=== PATIENT | female | born 1955 | race Caucasian/White ===

== ENCOUNTER → 2018-11-09 | Outpatient (CLI) | payer OTHER ==
[~2018-11-09] MED LIST: ALEV220T22 PO; ASPI81TA85 PO; BUPR300T34 PO; EZET10TA21 PO; GABA-843 PO; LISI20TA PO; SIMV40TA2 PO; ZANA4CAP PO
--- NOTE | 2018-11-10 21:47 | ECGEPIP ---
[facility] Test Date: 2018-11-09 Pat Name: CHRISTOPHER PRICE Department: Room: - Gender: Female Blueprinter: FRANDY : 1955 Requested By: Lonnie Kay Order Number: [id number] Reading MD: Yaya Quintana Measurements Intervals Perry Rate: 66 P: 50 IL: 184 QRS: 25 QRSD: 89 T: 27 QT: 401 QTc: 422 Interpretive Statements SINUS RHYTHM Normal ECG. No prior ECG available for comparison at the time of interpretation. Electronically Signed on 11-10-2018 21:47:03 EDT by Yaya Quintana
== END ==
LOC: M EKG 11:44
PROVIDERS: ATTEND Orthopaedic Surgery
DX: Z01.818 Encounter for other preprocedural examination (principal)

== ENCOUNTER 2018-11-10 07:04 | Inpatient (IN) | payer OTHER ==
--- NOTE | 2018-11-03 18:08 | HPE ---
DATE OF SCHEDULED ADMISSION: 11/10/2018 ATTENDING PHYSICIAN: Dr. Lonnie Harris CHIEF COMPLAINT: Back pain, pain radiating down to both lower extremities, right greater than left. HISTORY: This is a 63-year-old female patient with progressively worsening back pain and pain radiating to her lower extremities, left greater than right. She has failed to improve with conservative management to include therapy, rest, activity modifications, gabapentin and epidurals. She has elected for surgery for her continued symptoms. She has consented for a right unilateral laminectomy and posterior lateral fusion at L4-S1 by Dr. Harris. X-rays of her lumbar spine are notable for degenerative changes and a spondylolisthesis at L4-L5, degenerative changes mainly to the right side at L5-S1. MRI notable for degenerative changes at L4-L5, L5-S1, spondylolisthesis at L4-5. Mild degenerative changes at L3-L4, L2-L3. Medical optimization pending. ALLERGIES: No known drug allergies. CURRENT MEDICATIONS: - simvastatin 40 mg one tablet once per day - bupropion 300 mg one tablet once per day - lisinopril/hydrochlorothiazide 20/12.5 mg one tablet once per day - gabapentin 300 mg twice a day - Zanaflex 4 mg as needed for pain - aspirin 81 mg; she will discontinue that 5 days prior to surgery. MEDICAL HISTORY: Includes hypertension, elevated cholesterol. SURGICAL HISTORY: Includes section (), total hysterectomy, ganglion cyst removal, tonsils removed, carpal tunnel release. FAMILY HISTORY: Arthritis, hypertension, heart disease. SOCIAL HISTORY: She does not smoke. She does use alcohol. She is retired. REVIEW OF SYSTEMS: Denies fever or chills, chest pain, shortness of breath or cough. Denies difficulty breathing. Denies recent upper respiratory infection (URI) or urinary tract infection (UTI) symptoms. Notes persistent pain in her back, pain going down into her lower extremities, right greater than the left. PHYSICAL EXAM: Today reveals alert, well-nourished, well-developed female patient. She ambulates with a normal gait. Her gait is not wide-based. Her mood and affect are appropriate for the situation. Sits comfortably on the exam room table. Neck is supple without adenopathy or jugular venous distention (JVD). Lungs are clear to auscultation without rales or wheeze. Heart: Regular rate and rhythm. Exam of the back reveals the skin to be intact. No erythema, edema or ecchymosis. Straight leg raise testing is negative. Deep tendon reflexes are absent knees, absent at the ankles and sensation is grossly intact to the lower extremities on exam today. No irritability with hip range of motion. Current height 65 inches, weight 170 pounds. Temperature 98.8, blood pressure 127/80, pulse 65, respirations 18. IMPRESSION: Lumbar spondylolisthesis L4-5. Lumbar spinal stenosis L4-5 and L5-S1. PLAN: She was consented by Dr. Harris for a right unilateral laminectomy and posterolateral fusion L4, L5 and S1 with the use of iliac crest bone graft.
[~2018-11-10] VITALS: Ht 167.6 cm; Wt 77.1 kg
[2018-11-10] VITALS (8 sets, daily range): BP systolic 148–152; BP diastolic 68–88; O2SAT 95–96
[2018-11-10] MEDS: LR 1,000 ML IV SCH ×2 (07:00→17:00)
[~2018-11-10 07:04] MED LIST changes: +CelecoXIB (CeleBREX) 100 MG CAP PO ONE; +EZET10TA PO; -EZET10TA21 PO; +GABAPENTIN 300 MG CAP PO ONE; +PERCOCET 5MG/325MG TAB PO ONE
[2018-11-10] MEDS ORDERED: ceFAZolin 2 GM/D5W 50 ML IV BAG (J0690 PER 500MG) As Ordered ONE ×2 (07:34→12:33)
[2018-11-10] MEDS ORDERED: TRANEXAMIC ACID 100 MG/ML 10ML VIAL As Ordered ONE ×2 (08:11→09:04)
[2018-11-10] MEDS ORDERED: THROMBIN SOLN 20,000 UNITS KIT As Ordered ONE (08:11)
[2018-11-10] MEDS ORDERED: BUPIVACAINE/EPIN 0.25% 30 ML VIAL As Ordered ONE (08:11)
[2018-11-10] MEDS ORDERED: BACITRACIN PWD 50,000 UNITS VIAL As Ordered ONE ×2 (08:12→09:04)
[2018-11-10] MEDS ORDERED: EPINEPHrine INJ 1 MG/ML 1ML AMP As Ordered ONE (08:12)
[2018-11-10] MEDS ORDERED: BUPIVACAINE LIPOSOME/PF 1.3% 20ML VIAL (13.3MG/ML)(EXPAREL)(C9290 PER1MG) As Ordered ONE (08:12)
[2018-11-10] MEDS ORDERED: VANCOMYCIN HCL 500 MG/10 ML VIAL (J3370) As Ordered ONE (08:12)
[2018-11-10] MEDS ORDERED: BUPIVACAINE HCL 0.5% 30 ML VIAL As Ordered ONE (08:12)
[2018-11-10] MEDS ORDERED: dexameTHASONE 4 MG/ML 1ML VIAL (J1100) As Ordered ONE (10:28)
[2018-11-10] MEDS ORDERED: fentaNYL 250 MCG/5 ML INJECTION (J3010) As Ordered ONE (10:28)
[2018-11-10] MEDS ORDERED: ONDANSETRON 4MG/2ML VIAL (J2405) As Ordered ONE (10:28)
[2018-11-10] MEDS ORDERED: SUGAMMADEX SODIUM 500 MG/5 ML VIAL (BRIDION) As Ordered ONE (10:28)
[2018-11-10] MEDS ORDERED: LIDOCAINE 2% INJ 100 MG/5 ML SDV (FOR ANES.) As Ordered ONE (10:28)
[2018-11-10] MEDS ORDERED: MIDAZOLAM INJ 2 MG/2 ML VIAL (J2250) As Ordered ONE (10:28)
[2018-11-10] MEDS ORDERED: PROPOFOL 200 MG/20 ML VIAL As Ordered ONE ×2 (10:28→15:16)
[2018-11-10] MEDS ORDERED: HYDROmorphone HCL 2 MG/ML 1ML VIAL (J1170) As Ordered ONE (10:28)
[2018-11-10] MEDS ORDERED: ROCURONIUM BROMIDE 50 MG/5 ML VIAL As Ordered ONE (10:28)
--- NOTE | 2018-11-10 15:56 | REP ---
Partial lumbar spine series: Three views. History: Spinal stenosis. 4 minutes 15 seconds of fluoroscopy time is reported. Findings: Bilateral transpedicular screw and interconnecting sonal fusion is seen in place at the L4, L5, and S1. A 11 mm spondylolisthesis is seen at L4-5. Fluoroscopic spot radiographs document fusion procedure. Electronically Signed by Fredrick Bentley MD 11/10/2018 03:59 P
[2018-11-10] MEDS ORDERED: tiZANidine 4 MG TAB PO PRN (16:00)
[2018-11-10] MEDS ORDERED: HYDROMORPHONE HCL 0.5 MG/ 0.5 ML SYRINGE (J1170 PER 1) IV PRN ×2 (16:00)
[2018-11-10] MEDS: D5W/LR 1,000 ML IV SCH (16:00)
[2018-11-10] MEDS ORDERED: NORTRIPTYLINE 10 MG CAP PO PRN (16:00)
[2018-11-10] MEDS ORDERED: PERCOCET 5MG/325MG TAB PO PRN ×2 (16:00→16:45)
[2018-11-10] MEDS ORDERED: MEPERIDINE INJ 25 MG/ML VIAL (J2175) As Ordered ONE (16:03)
[2018-11-10] MEDS: MEPERIDINE INJ 25 MG/ML VIAL (J2175) IV PRN ×2 (16:05→16:10)
[2018-11-10] MEDS ORDERED: METOCLOPRAMIDE INJ 10MG/2ML VIAL (J2765) IV PRN (16:45)
[2018-11-10] MEDS ORDERED: LR 1,000 ML IV SCH (16:45)
[2018-11-10] MEDS ORDERED: ONDANSETRON 4MG/2ML VIAL (J2405) IV PRN (16:45)
[2018-11-10] MEDS ORDERED: fentaNYL 100 MCG/2 ML INJECTION (J3010) IV PRN (16:45)
[2018-11-10] MEDS: GABAPENTIN 300 MG CAP PO SCH (20:02)
[2018-11-11] MEDS: D5W/LR 1,000 ML IV SCH ×2 (02:00→12:00)
[2018-11-11] MEDS: LR 1,000 ML IV SCH ×2 (02:30→13:00)
[2018-11-11] MEDS: PERCOCET 5MG/325MG TAB PO PRN ×3 (05:37→14:52)
[2018-11-11 06:00] VITALS: BP 144/76
[2018-11-11] MEDS ORDERED: METAMUCIL (PSYLLIUM) PACKET PO SCH (09:00)
[2018-11-11] MEDS ORDERED: LISINOPRIL 20 MG TAB PO SCH (09:00)
[2018-11-11] MEDS ORDERED: buPROPion **XL** TABLET 150MG (WELLBUTRIN XL) PO SCH (09:00)
[2018-11-11] MEDS ORDERED: hydroCHLOROthiazide 12.5 MG CAPSULE PO SCH (09:00)
[2018-11-11] MEDS: GABAPENTIN 300 MG CAP PO SCH (09:18)
[2018-11-11 09:20] VITALS: BP 146/93
[2018-11-11] MEDS ORDERED: SIMVASTATIN 40 MG TAB PO SCH (21:00)
--- NOTE | 2018-11-14 11:32 | RO ---
DATE OF SURGERY: 11/10/2018 PREOPERATIVE DIAGNOSIS: Spondylolisthesis at L4-5 with spinal stenosis at L4-5 and L5-S1. POSTOPERATIVE DIAGNOSIS: PROCEDURE PERFORMED: Unilateral laminectomy right L4 with decompression of the thecal sac, exiting and traversing nerve root, unilateral laminectomy of right L5 additional level, unilateral laminectomy right S1 additional level, L4-5 posterior intertransverse arthrodesis, L5-S1 posterior intertransverse arthrodesis additional level, L4-5, S1 segmental pedicle screw instrumentation, left iliac crest morselized autograft, donor graft also utilized. SURGEON: Lonnie Harris MD EDITOR & CO FOUNDER: DARIAN Gama ANESTHESIA: General endotracheal. COMPLICATIONS: None. COMPONENTS USED: Weight WinsIUM 5.5 pedicle screw system. INDICATIONS: Neurogenic claudication in the right more than the left lower extremity, back discomfort, failure of conservative management. Consent reviewed in detail with the patient including keshia discussion of the pathology involved, the procedure proposed, alternatives including doing nothing, risks including but not limited to pain, failure, infection, bleeding blood loss, incomplete relief of symptoms, need for additional surgery, paralysis, nerve injury and other issues. The patient agreed to proceed. OPERATIVE COURSE: Identified in holding area, site and side verified. Brought to the operating room. Once anesthesia was administered, positioned on the Velasquez frame for exposure of the lumbar spine. Once I and the hand model were comfortable with the patient's positioning, she was sterilely prepped and draped in usual fashion for exposure of the lumbar spine. Portions of procedure I did accomplish using loupe magnification. For the decompression we did utilize the operating microscope. I began the procedure on the patient's right, Mr. Hernandes stood on the patient's left, but we did alternate positions through the course of the procedure so that I could implement hernandez portions of the procedure. The line of the incision was outlined with a marking pen, it was approximately 10 cm long, infiltrated with 0.25% Marcaine with epinephrine, made with a 10 blade knife, developed down through skin and subcuticular tissues to the posterior lumbar fascia. I preserved midline structures. I opened the posterior lumbar fascia to the right of midline, preserving the interspinous ligaments. The dissection continued over the lamina of 4, 5 and to the top of S1. We did drilled divots in the posterior lamina and placed probes in the posterior lamina and then obtained a cross-table lateral x-ray to verify our level. Next, dissection continued exposing the L4-5 and S1 lamina on the patient's left side as well. Irrigation was accomplished. We then dissected out over the transverse processes of L4-5 in the sacral ala. Mr. Hernandes utilizing Ammon retractors while I implemented dissection using the hot knife. Next, once the intertransverse dissection was accomplished, I placed the SHADOW-LINE retractor for a right unilateral laminectomy. I debrided the hypertrophic facet complexes and posterior lamina using a Leksell. This bone was retained for bone graft. Next, I utilized the high-speed bur to implement a right unilateral laminectomy extending from L5 through L4 bare areas, removing lamina, undercutting spinous process at 4 and 5 to allow over the horizon dissection/decompression. Extended to the top of S1. Bone millings were evacuated using the Digital Royalty trap suction device and retained for bone graft. Next, curettes were utilized to elevate hypertrophied ligamentum flavum and then curettes and #2 Kerrison's were utilized to remove ligamentum flavum from midline. I then utilized Yudy curettes to decompress the subarticular space on the right as well as on the left as well as #2 Kerrison's. The facets were quite hypertrophic especially at 4-5, to a lesser degree at 5-1 on the right. Next, irrigation was accomplished. Thrombin Gelfoam and bipolar cautery utilized for hemostasis. Next, at this stage, this portion of the procedure had been done using the operating microscope. The operating microscope was removed. We re-gowned with lead and fluoroscopy was brought in for additional portions of the case. At this stage, we also obtained left iliac crest bone graft morselized through a separate fascial incision. The iliac crest harvest site was the posterior superior iliac spine. After the graft was harvested we packed this with dry Gelfoam after irrigation and closed that wound. I did utilize about 5 mL of Exparel Marcaine saline solution injected around this site for postoperative analgesia/pain control. Next, continuing once this was accomplished. Mr. Hernandes utilized Ammon retractors to help expose the pedicles. We cannulated the pedicles beginning on the patient's left side at the S1 pedicle using the high-speed bur to open the pedicle, followed by the pedicle finder, followed by the ball tip guide to verify the pedicle tract, followed by the tap to tap the pedicle. We utilized 7.0 screws at S1 bilaterally and 6.0 screws at L5 and L4. Next, all pedicle tracts on the left were good and a ball tip guide sounding was accomplished at every level. We selected the appropriate screws, which were placed in the cannulated pedicles. Next, at this stage, I did place bone graft. Mr. Hernandes utilized Ammon retractors to retract. I decorticated the sacral ala as well as the transverse processes using the high-speed bur as well as facet complexes and any additional lamina that had not been decorticated. I placed iliac crest morselized bone graft as well as donor graft and demineralized bone matrix putty over the transverse processes sacral ala and along the facet complexes and pedicle screws. I then placed the connecting sonal, secured with end caps, distracted 2 mm between 4 and 5 on the left. Next, torque counter torque device was utilized to lock the sonal in place. Next, on the right side pedicles were cannulated in a similar fashion including sounding with a ball tip guide both before and after use of the tap. Next, after use of the tap at L4, I did suspect at least a partial breach of the medial pedicle wall and then did use the pedicle finder as well as the tap to re-target that screw. Placement of the tap visualized fluoroscopically to be acceptable. Next, screws were placed and fluoroscopic images verified good screw position including at L4, including an oblique image at L4 which indicated the L4 right pedicle screw was within pedicle shadow. Next, once this was accomplished, in a similar fashion we again decorticated the transverse processes on the right at L4-5 and the top of sacral ala, placed remaining iliac crest, irrigated and then placed remaining iliac crest bone graft followed by donor graft and DBX, placed the connecting sonal, placed end caps, and locked end caps. Next, we did utilize TXA solution for hemostasis. This was allowed to roll edge machine operator the wound for approximately 1 minute. We did irrigate. I did place vancomycin crystals in the screw cap end caps, approximately 1 gram split between the right and left sides. Next, Exparel solution was injected along the fascial planes and subcuticular planes prior to closure. Next, the posterior lumbar fascia was then reapproximated to midline using #1 as well as #0 stitch approximated to the midline retained interspinous ligament. Next, once this was accomplished, deep dermis was reapproximated with #0 as well as #3-0 Vicryl stitch. Prineo dressing was applied. The patient was moved to recovery room after extubation in good condition moving all four extremities. For further details, please refer to the medical record.
== END 2018-11-11 15:40 | disposition home or self-care (01) | DRG 304 ==
LOC: M OR 07:04 → M MS5PR 16:52
PROVIDERS: ADMIT Orthopaedic Surgery; ATTEND Orthopaedic Surgery
PROC: 00NY0ZZ Release Lumbar Spinal Cord, Open Approach (ICD-10-PCS; 2018-11-10)
PROC: 0SG1071 Fusion of 2 or more Lumbar Vertebral Joints with Autologous Tissue Substitute, Posterior Approach, Posterior Column, Open Approach (ICD-10-PCS; principal; 2018-11-10 08:30)
DX: M48.061 Spinal stenosis, lumbar region without neurogenic claudication (principal); I10 Essential (primary) hypertension; M43.16 Spondylolisthesis, lumbar region; E78.00 Pure hypercholesterolemia, unspecified; Z79.82 Long term (current) use of aspirin; Z79.899 Other long term (current) drug therapy

== ENCOUNTER → 2018-11-23 | Outpatient (CLI) | payer OTHER ==
[~2018-11-23] MED LIST changes: -CelecoXIB (CeleBREX) 100 MG CAP PO ONE; -EZET10TA PO; +EZET10TA21 PO; -GABAPENTIN 300 MG CAP PO ONE; -PERCOCET 5MG/325MG TAB PO ONE
--- NOTE | 2018-11-23 15:04 | REP ---
RIGHT LOWER EXTREMITY DUPLEX DOPPLER ARTERIAL ULTRASOUND: Real-time ultrasound evaluation and duplex Doppler interrogation of right lower extremity arterial system is performed. JUSTUS is 1.07. Arterial structures in the right lower extremity are widely patent with no stenosis. Triphasic and biphasic waveforms are seen throughout as well as normal flow velocities. RIGHT PEAK SYSTOLIC VELOCITY Common femoral artery 55.6 cm/s Profunda 65.2 Proximal SFA 62.6 Mid SFA 109 Distal SFA 109 Popliteal 54 Proximal BETO 58.4 Tibial/peroneal trunk 61.9 Proximal MAGAZINE FILLER 91.8 Distal MAGAZINE FILLER 85.5 Distal BETO 66.7 IMPRESSION: No significant narrowing or stenosis, right lower extremity arterial system. Electronically Signed by Bal Black MD 11/24/2018 04:16 P
== END ==
LOC: M RAD 13:45
PROVIDERS: ATTEND Surgery Vascular Surgery
DX: R20.0 Anesthesia of skin (principal)

== ENCOUNTER 2018-11-25 12:28 | Day surgery (SDC) | payer OTHER ==
[~2018-11-25] VITALS: Ht 167.6 cm; Wt 75.7 kg
[2018-11-25] MEDS ORDERED: GABAPENTIN 300 MG CAP PO ONE (12:45)
[2018-11-25] MEDS ORDERED: NORCO, ANEXSIA 5/325MG TABLET (HYDROcodone/ACETAMINOPHEN) PO ONE (12:45)
[2018-11-25] MEDS ORDERED: BUPIVACAINE HCL 0.5% 10 ML VIAL As Ordered ONE (14:12)
[2018-11-25] MEDS ORDERED: TRANEXAMIC ACID 100 MG/ML 10ML VIAL As Ordered ONE (14:12)
[2018-11-25] MEDS ORDERED: THROMBIN SOLN 20,000 UNITS KIT As Ordered ONE (14:12)
[2018-11-25] MEDS ORDERED: BACITRACIN PWD 50,000 UNITS VIAL As Ordered ONE (14:13)
[2018-11-25] MEDS ORDERED: VANCOMYCIN HCL 500 MG/10 ML VIAL (J3370) As Ordered ONE (14:13)
[2018-11-25] MEDS ORDERED: BUPIVACAINE LIPOSOME/PF 1.3% 20ML VIAL (13.3MG/ML)(EXPAREL)(C9290 PER1MG) As Ordered ONE (14:13)
[2018-11-25] MEDS ORDERED: EPINEPHrine INJ 1 MG/ML 1ML AMP As Ordered ONE (14:13)
[2018-11-25] MEDS ORDERED: dexameTHASONE 4 MG/ML 1ML VIAL (J1100) As Ordered ONE (14:23)
[2018-11-25] MEDS ORDERED: ROCURONIUM BROMIDE 50 MG/5 ML VIAL As Ordered ONE (14:41)
[2018-11-25] MEDS ORDERED: MIDAZOLAM INJ 2 MG/2 ML VIAL (J2250) As Ordered ONE (14:41)
[2018-11-25] MEDS ORDERED: PROPOFOL 200 MG/20 ML VIAL As Ordered ONE ×2 (14:41→16:13)
[2018-11-25] MEDS ORDERED: fentaNYL 250 MCG/5 ML INJECTION (J3010) As Ordered ONE (14:41)
[2018-11-25] MEDS ORDERED: LIDOCAINE 2% INJ 100 MG/5 ML SDV (FOR ANES.) As Ordered ONE (14:41)
[2018-11-25] MEDS ORDERED: BUPIVACAINE/EPIN 0.25% 30 ML VIAL As Ordered ONE (14:43)
[2018-11-25] MEDS ORDERED: ONDANSETRON 4MG/2ML VIAL (J2405) As Ordered ONE (15:00)
[2018-11-25] MEDS ORDERED: SUGAMMADEX SODIUM 500 MG/5 ML VIAL (BRIDION) As Ordered ONE (15:00)
[2018-11-25] MEDS ORDERED: ePHEDrine SULFATE 25 MG/5 ML(5MG/ML) SYRINGE As Ordered ONE (15:07)
[2018-11-25] MEDS ORDERED: LR 1,000 ML IV SCH ×2 (17:15→17:30)
[2018-11-25] MEDS ORDERED: fentaNYL 100 MCG/2 ML INJECTION (J3010) IV PRN (17:15)
[2018-11-25] MEDS ORDERED: ONDANSETRON 4MG/2ML VIAL (J2405) IV PRN (17:15)
[2018-11-25] MEDS ORDERED: PROMETHAZINE INJ 25 MG/ML VIAL (J2550) IV PRN (17:30)
[2018-11-25] MEDS ORDERED: PERCOCET 5MG/325MG TAB PO PRN ×2 (17:30)
[2018-11-25] MEDS ORDERED: MORPHINE 4 MG/ML 1ML VIAL/SYRINGE (J2270) IV PRN (17:30)
--- NOTE | 2018-11-25 18:40 | RO ---
DATE OF PROCEDURE: 11/25/2018 PREOPERATIVE DIAGNOSIS: Right lower extremity radicular pain, status post recent lumbar sacral fusion procedure. POSTOPERATIVE DIAGNOSIS: Right lower extremity radicular pain, status post recent lumbar sacral fusion procedure. PROCEDURE PERFORMED: Exploration of wound, removal of right L4 pedicle screw, evacuation hematoma. SURGEON: Lonnie Harris MD FLEX O WRITER OPERATOR: Cinthya Gonzalez PA-C ANESTHESIA: General. ESTIMATED BLOOD LOSS: Less than 50 mL. No complications. COMPONENTS USED: I removed the pedicle screw on the right at L4. I removed end caps. I replaced the connecting sonal with a 40 mm connecting sonal between L5 and S1 on the right side. INDICATIONS: Right lower extremity radicular pain after lumbar decompression and fusion with relief of back pain. CT scan, which in my opinion, suggests prominence of the medial wall of the L4 right pedicle, which could be consistent with pedicle breech displacing the medial wall of the pedicle into the nerve root traversing. Consent reviewed in detail with the patient including a keshia discussion of procedure proposed, alternatives such as doing nothing, risks including but not limited to pain, failure, infection, need for more surgery, nerve injury, incomplete relief, failure to relieve symptoms and other problems. The patient agrees to proceed. DESCRIPTION OF PROCEDURE: Identified in holding area, site and side verified, brought to the operating room once anesthesia was administered. She was positioned in the prone position on the Velasquez table with the Felton frame on the Velasquez table, the knees slightly flexed, carefully positioned, axillary rolls utilized. Once I and the retail loan officer were comfortable with the patient's positioning, she was then sterilely prepped and draped in the usual fashion. Next, we did utilize Hibiclens and alcohol solution because the patient at last visit did seem to have a redness or erythematous reaction to the prep material. Next, Miss Gonzalez stood on the patient's left, Hung stood on the patient's right. I utilized 3.5 loupe magnification as well as a headlamp. I opened the incision with a 10 blade knife, developed down through subcuticular tissues. There was a posterior lumbar brownish-colored seroma; this was evacuated. Next, posterior lumbar fascia was identified. I divided the Vicryl stitch and removed the Vicryl stitch with Criles. I reflected the posterior lumbar fascia and paraspinal muscles over the pedicle screws exposing them. There seemed to be a wound hematoma, and this was able to be evacuated down to the level of the dura. I appreciated the dura. The dura had good turgor. We cleared hematoma from the dura, we irrigated. I identified the pedicle screws. I removed the end caps on all the pedicle screws. I removed the L4 pedicle screw with the pedicle screw sprinkler truck driver. The tract was dry. I was able to appreciate the threads from the tapping system well into the vertebral body visually using my headlamp and loupe magnification, at least on the lateral two-thirds of the circumference but not so much the medial. Probing with a ball-tip, there may be a breech or widening of the medial wall of the pedicle also appreciable here, but there was no bleeding from the pedicle, no fluid coming from the pedicle. Next, I did place Shadow-Line retractors. I did utilize the high-speed bur under loupe magnification to remove additional inferior lamina so that I could develop the dissection towards the pedicle of L4, remove some additional ligamentum flavum laterally and I probed around the neural foramina, which was appreciable to be patent to the Howard-Compa probe and around the medial aspect of pedicle. Again, we appreciated no active bleeding and no cerebrospinal fluid (CSF) leak at this stage. I did have the retail loan officer implement a Valsalva maneuver, and there was no appreciable CSF leakage or bleeding. Next, I did allow 60 mL TXA solution to oil processing technician the wound for at least 1 minute before evacuating it. Next, I irrigated with several hundred mL of saline solution, as well as high con bacitrain. The retractors were removed. I replaced a 40 mm connecting sonal and end caps and use the torque-counter torque device on the right side at L5 and S1. I then closed the wound with interrupted stitch. We then sprinkled some vancomycin crystals over the lumbar fascia. We then reapproximated Opal's fascia with interrupted #0 stitch as well as some #0 deep dermal stitches and then #3-0 buried interrupted stitches in the dermis, followed by application of a Prineo dressing which was secured with the bonding solution. Next, the patient was log-rolled to the hospital bed, extubated uneventfully, moved to the recovery room in good condition, was appreciated to the moving all four extremities in the recovery room. For further details, please refer to the medical record.
[2018-11-25 19:00] VITALS: BP 137/85
== END 2018-11-25 19:05 | disposition home or self-care (01) ==
LOC: M SDC 12:28
PROVIDERS: ATTEND Orthopaedic Surgery
DX: L76.22 Postprocedural hemorrhage of skin and subcutaneous tissue following other procedure (principal); M54.16 Radiculopathy, lumbar region; I10 Essential (primary) hypertension; E78.5 Hyperlipidemia, unspecified; K21.9 Gastro-esophageal reflux disease without esophagitis
CPT/HCPCS: 20680; 22830; 88300; C9290; J0690; J1100; J2250; J2405; J3010; J3370

== ENCOUNTER → 2021-06-09 | Outpatient (CLI) | payer MEDICARE, OTHER ==
[~2021-06-09] MED LIST changes: -ASPI81TA85 PO; +ASPI81TA86 PO; -BUPR300T34 PO; +BUPR300T92 PO; +GABA-282 PO; -GABA-843 PO; -LISI20TA PO; +LISI20TA35 PO; -SIMV40TA2 PO; +SIMV40TA20 PO
[2021-06-09 13:47] LABS: BASO # 0.1 10^3/uL (0.0-0.2); BASO % 0.7 % (0.0-1.0); EOS # 0.4 10^3/uL (0.0-0.5); EOS % 3.7 % (0.0-3.0); HEMATOCRIT 38.4 % (36.0-47.0); LYMPH # 2.3 10^3/uL (1.5-5.0); LYMPH % 21.3 % (24.0-44.0); MEAN CORPUSCULAR HEMOGLOBIN 32.3 pg (27.0-33.0); MEAN CORPUSCULAR HGB CONC 33.9 g/dl (32.0-36.5); MEAN CORPUSCULAR VOLUME 95.3 fl (80.0-96.0); MONO # 0.7 10^3/uL (0.0-0.8); MONO % 6.7 % (2.0-8.0); NEUTROPHILS # 7.2 10^3/uL (1.5-8.5); NEUTROPHILS % 67.1 % (36.0-66.0); PLATELET COUNT, AUTOMATED 300 10^3/uL (150-450); RED BLOOD COUNT 4.03 10^6/uL (4.00-5.40); WHITE BLOOD COUNT 10.7 10^3/uL (4.0-10.0)
[2021-06-09 14:28] LABS: ALBUMIN 4.1 GM/DL (3.2-5.2); ALT/SGPT 23 U/L (12-78); BILIRUBIN,TOTAL 0.5 MG/DL (0.2-1.0); BLOOD UREA NITROGEN 18 MG/DL (7-18); CALCIUM LEVEL 9.5 MG/DL (8.8-10.2); CARBON DIOXIDE LEVEL 30 MEQ/L (21-32); CHLORIDE LEVEL 98 MEQ/L (98-107); CREATININE FOR GFR 0.87 MG/DL (0.55-1.30); FOLATE 18.8 NG/ML; GLOMERULAR FILTRATION RATE > 60.0 (>45); GLUCOSE, FASTING 109 MG/DL (70-100); POTASSIUM SERUM 4.4 MEQ/L (3.5-5.1); SODIUM LEVEL 135 MEQ/L (136-145); T UPTAKE 37 % (30-39); THYROID STIMULATING HORMONE 0.626 uIU/ML (0.358-3.740); THYROXINE (T4) 5.5 UG/DL (4.5-12.0); TOTAL PROTEIN 7.2 GM/DL (6.4-8.2); VITAMIN B12 LEVEL 572 PG/ML
[2021-06-17 16:07] LABS: VITAMIN B1 LEVEL WHOLE BLOOD 129.3 nmol/L (66.5-200.0); VITAMIN B6,PYRIDOXAL PHOSPHATE 9.1 ug/L (2.0-32.8); VITAMIN E(ALPHA TOCOPHEROL) 22.7 mg/L (9.0-29.0); VITAMIN E(GAMMA TOCOPHEROL) 3.2 mg/L (0.5-4.9)
== END ==
LOC: M PLALAB 11:52
PROVIDERS: ATTEND Psychiatry & Neurology Neurology
DX: E53.8 Deficiency of other specified B group vitamins (principal); R25.1 Tremor, unspecified; E07.9 Disorder of thyroid, unspecified

== ENCOUNTER → 2022-01-27 | Outpatient (CLI) | payer MEDICARE, OTHER | LOC: M ONCR 14:18 | PROVIDERS: ATTEND General Practice | DX: C50.411 Malignant neoplasm of upper-outer quadrant of right female breast (principal); C50.512 Malignant neoplasm of lower-outer quadrant of left female breast; I10 Essential (primary) hypertension; K21.9 Gastro-esophageal reflux disease without esophagitis; Z72.89 Other problems related to lifestyle; Z79.899 Other long term (current) drug therapy; Z80.0 Family history of malignant neoplasm of digestive organs; Z80.3 Family history of malignant neoplasm of breast; Z80.8 Family history of malignant neoplasm of other organs or systems; Z87.891 Personal history of nicotine dependence; Z90.710 Acquired absence of both cervix and uterus ==

== ENCOUNTER 2022-02-10 07:19 | Outpatient (RCR) | payer MEDICARE, OTHER | END 2022-02-11 | LOC: M ONCR 07:19 | PROVIDERS: ATTEND General Practice | DX: C50.412 Malignant neoplasm of upper-outer quadrant of left female breast (principal); C50.411 Malignant neoplasm of upper-outer quadrant of right female breast ==

== ENCOUNTER 2022-02-12 15:08 | Outpatient (RCR) | payer MEDICARE, OTHER | END 2022-03-13 | LOC: M ONCR 15:08 | PROVIDERS: ATTEND General Practice | DX: C50.412 Malignant neoplasm of upper-outer quadrant of left female breast (principal); C50.411 Malignant neoplasm of upper-outer quadrant of right female breast ==

== ENCOUNTER → 2022-04-13 | Outpatient (RCR) | payer MEDICARE, OTHER ==
[~2022-04-13] MED LIST changes: +IBUP-1022 PO
== END ==
LOC: M ONCR 03-16 09:00
PROVIDERS: ATTEND General Practice
DX: C50.412 Malignant neoplasm of upper-outer quadrant of left female breast (principal); C50.411 Malignant neoplasm of upper-outer quadrant of right female breast

== ENCOUNTER → 2022-10-08 | Outpatient (CLI) | payer MEDICARE, OTHER | LOC: M ONCR 10:29 | PROVIDERS: ATTEND General Practice | DX: C50.411 Malignant neoplasm of upper-outer quadrant of right female breast (principal); C50.412 Malignant neoplasm of upper-outer quadrant of left female breast; F12.90 Cannabis use, unspecified, uncomplicated; Z72.89 Other problems related to lifestyle; Z79.1 Long term (current) use of non-steroidal anti-inflammatories (NSAID); Z79.811 Long term (current) use of aromatase inhibitors; Z79.899 Other long term (current) drug therapy; Z87.891 Personal history of nicotine dependence; Z92.3 Personal history of irradiation ==

== ENCOUNTER → 2023-04-21 | Outpatient (CLI) | payer MEDICARE, OTHER | LOC: M ONCR 10:42 | PROVIDERS: ATTEND General Practice | DX: C50.412 Malignant neoplasm of upper-outer quadrant of left female breast (principal); C50.411 Malignant neoplasm of upper-outer quadrant of right female breast; Z71.2 Person consulting for explanation of examination or test findings; Z79.811 Long term (current) use of aromatase inhibitors; Z79.1 Long term (current) use of non-steroidal anti-inflammatories (NSAID); Z79.899 Other long term (current) drug therapy; Z92.3 Personal history of irradiation; Z98.890 Other specified postprocedural states ==

== ENCOUNTER → 2024-04-20 | Outpatient (CLI) | payer MEDICARE, OTHER ==
[~2024-04-20] MED LIST changes: +BUPR-597 PO; -BUPR300T92 PO; +GABA-1172 PO; -GABA-282 PO
== END ==
LOC: M ONCR 09:57
PROVIDERS: ATTEND General Practice
DX: C50.411 Malignant neoplasm of upper-outer quadrant of right female breast (principal); C50.412 Malignant neoplasm of upper-outer quadrant of left female breast; Z79.811 Long term (current) use of aromatase inhibitors; Z79.899 Other long term (current) drug therapy; Z92.3 Personal history of irradiation; Z87.891 Personal history of nicotine dependence

== ENCOUNTER → 2025-04-20 | Outpatient (CLI) | payer MEDICARE, OTHER ==
[~2025-04-20] MED LIST changes: -BUPR-597 PO; +BUPR-766 PO; -EZET10TA21 PO; +EZET10TA57 PO; -IBUP-1022 PO; +IBUP600T42 PO
== END ==
LOC: M ONCR 09:55
PROVIDERS: ATTEND Radiology Radiation Oncology
DX: Z08 Encounter for follow-up examination after completed treatment for malignant neoplasm (principal); Z85.3 Personal history of malignant neoplasm of breast; Z92.3 Personal history of irradiation; Z79.1 Long term (current) use of non-steroidal anti-inflammatories (NSAID); Z79.811 Long term (current) use of aromatase inhibitors; Z79.899 Other long term (current) drug therapy; Z87.891 Personal history of nicotine dependence; Z72.89 Other problems related to lifestyle

== ENCOUNTER → 2025-06-04 | Outpatient (CLI) | payer MEDICARE ==
[~2025-06-04] MED LIST changes: +PROHANCE 279.3MG/ML 15ML VIAL ONE
== END ==
LOC: M PLAIMG 14:40
PROVIDERS: ATTEND Orthopaedic Surgery
DX: M48.07 Spinal stenosis, lumbosacral region (principal); M54.16 Radiculopathy, lumbar region
CPT/HCPCS: 72158; A9579